=== PATIENT | male | born 1985 | race Caucasian/White ===

== ENCOUNTER 2019-10-17 22:19 | Emergency (ER) | payer OTHER ==
[2019-10-17 22:28] VITALS: BP 126/83; PULSE 74; TEMP 98.6; BMI 35.4
--- NOTE | 2019-10-17 22:55 | PDOC ---
Documentation entered by Therese Reed SCRIBE, acting as scribe for Jennifer Evangelista MD. Jennifer Evangelista MD: This documentation has been prepared by the holleyibe, Therese Reed SCRIBE, under my direction and personally reviewed by me in its entirety. I confirm that the documentation accurately reflects all work, treatment, procedures, and medical decision making performed by me. History of Present Illness - General Chief Complaint: Pain Stated Complaint: STING TO FACE Time Seen by Provider: 10/17/19 22:30 History Source: Patient Exam Limitations: No Limitations - History of Present Illness Initial Comments: 10/17/19 22:44 The patient is a 34-year-old male who presents to the emergency department s/p a bee or wasp sting. The patient reports he was up on a ladder when he was stung on the right cheek by an insect. The patient reports he jumped off the ladder, denies falling. The patient reports pain to the stung site and reports scratching the site because of pain. The patient reports he isnt sure if the insect was a bee or wasp. The patient reports about 20 years ago he was stung by an insect and had to go to the hospital for an injection. Because of that incident, the patient was concerned today and decided to be evaluated. Denies any difficulty breathing or changes to the voice. PAST MEDICAL HISTORY: no significant history PAST SURGICAL HISTORY: no significant history FAMILY HISTORY: no pertinent history SOCIAL HISTORY: Pt lives with family and is employed. MEDICATIONS: reviewed ALLERGIES: bee venom. PCP: Dr. Tyler Wolfe. Review of system: General: No fevers or chills, no weakness, no weight loss HEENT: No change in vision. No sore throat. No ear pain CardioVascular: No chest pain or shortness of breath Respiratory:No cough, or wheezing. Gastrointestinal: no nausea, vomiting, diarrhea or constipation, No rectal bleeding Genitourinary: No dysuria, hematuria, or frequency Musculoskeletal: No joint or muscle pain or swelling Neurologic: No headache, vertigo, dizziness or loss of consciousness Psychiatric: nor depression Skin: +right cheek bee or wasp sting. No rashes or easy bruising Endocrine: no increased thirst or abnormal weight change Allergic: no skin or latex allergy All other systems reviewed and normal Physical exam: GENERAL: The patient is awake, alert, and fully oriented, in no acute distress. HEAD: Normal with no signs of trauma. EYES: Pupils equal, round and reactive to light, extraocular movements intact, sclera anicteric, conjunctiva clear. EXTREMITIES: Normal range of motion, no edema. NEUROLOGICAL: Normal speech, normal gait. PSYCH: Normal mood, normal affect. SKIN: +right cheek: small area of erythema consistent with a sting. There is minimal swelling to the cheek, area of excoriation secondary to the patient scratching his face. Warm, Dry, normal turgor, no rashes or lesions noted. Assessment and plan: This is a 4-year-old male who comes in post being stung by possibly a yellow jacket or wasp. Patient is allergic to bee venom. Patient denies any shortness of breath, abdominal pain, lightheadedness, passing out, weakness or any other associated symptoms. Patient complains of pain to the area only. On my exam there was some mild erythema in the area of the staying and some excoriations of the skin where patient had scratched at the area secondary to the pain from the sting. Patient was reassured and discharged. 10/17/19 22:46 Past History - Medical History Allergies/Adverse Reactions: Allergies Allergy/AdvReac Type Severity Reaction Status Date / Time bee venom protein (honey bee) Allergy Severe Swelling Verified 10/17/19 22:23 Sulfa (Sulfonamide Allergy Severe Hives Verified 10/17/19 22:23 Antibiotics) cashew nut Allergy Intermediate Difficulty Verified 10/17/19 22:23 Breathing vipin Allergy Intermediate Difficulty Verified 10/17/19 22:23 Breathing mold Allergy Intermediate Difficulty Verified 10/17/19 22:23 Breathing Pollen Allergy Intermediate Difficulty Uncoded 10/17/19 22:23 Breathing Home Medications: Ambulatory Orders NK [No Known Home Medication] 10/17/19 Asthma: Yes COPD: No - Psycho-Social/Smoking History Smoking History: Never smoked Have you smoked in the past 12 months: No Information on smoking cessation initiated: No - Substance Abuse Hx (Audit-C & DAST Scrn) How often the patient has a drink containing alcohol: Monthly or less Score: In Men: 4 or > Positive; In Women: 3 or > Positive: 1 Screen Result (Pos requires Nsg. Audit-10AR): Negative In the last yr the pt used illegal drug/Rx for NonMed reason: No Score: Yes response is considered Positive: 0 Screen Result (Positive result requires Nsg. DAST-10): Negative *Physical Exam - Vital Signs Last Vital Signs Temp Pulse Resp BP Pulse Ox 98.6 F 74 18 126/83 97 10/17/19 22:24 10/17/19 22:24 10/17/19 22:24 10/17/19 22:24 10/17/19 22:24 Discharge - Discharge Information Problems reviewed: Yes Clinical Impression/Diagnosis: Accidental wasp sting Disposition: HOME - Admission No - Follow up/Referral - Patient Discharge Instructions Additional Instructions: Take Sagrario or Claritin for nondrowsy antihistamine for the itching or Benadryl which may make you drowsy. Return to the emergency department immediately with ANY new, persistent or worsening symptoms. Continue any medications as previously prescribed by your physician. You should follow up with your primary doctor as soon as possible regarding today's emergency department visit. . Please make sure your doctor reviews the results of your emergency evaluation. Thank you for coming to the Emergency Department today for your care. It was a pleasure to see you today. Please note that your evaluation is INCOMPLETE until you follow-up with your doctor. - Post Discharge Activity
== END 2019-10-17 22:57 | disposition home or self-care (01) ==
LOC: SUPCPDRO 22:19 → FER 22:19
DX: T63.461A Toxic effect of venom of wasps, accidental (unintentional), initial encounter (principal)
CPT/HCPCS: 99281-25